=== PATIENT | female | born 1960 | race Caucasian/White ===

== ENCOUNTER 2020-04-01 03:13 | Emergency (ER) | payer OTHER ==
[~2020-04-01] VITALS: Ht 160 cm; Wt 50.8 kg
[2020-04-01 04:19] LABS: ABSOLUTE EOSINOPHILS 0.1 thou/uL (0.0-0.7); ABSOLUTE LYMPHOCYTES 1.5 thou/uL (0.8-5.3); ABSOLUTE MONOCYTES 0.4 thou/uL (0.0-1.2); ABSOLUTE NEUTROPHILS 3.7 thou/uL (1.6-8.1); BASOPHILS 0.5 %; EOSINOPHILS 1.6 %; HEMATOCRIT 38.1 % (37.0-47.0); HEMOGLOBIN 12.8 gm/dL (12.0-15.0); LYMPHOCYTES 25.7 %; MCH 29.4 pg (26.0-34.0); MCHC 33.7 g/dL (28.0-37.0); MCV 87.2 fL (80.0-100.0); MONOCYTES 7.2 %; MPV 7.5 fl. (7.2-11.1); NUCLEATED RBCS 0 /100WBC; PLATELET COUNT* 277 thou/uL (150-400); RBC 4.37 mil/uL (4.20-5.00); RDW-CV 13.4 % (10.5-14.5); WBC 5.7 thou/uL (4.0-11.0)
[2020-04-01 04:32] LABS: CALCIUM 9.4 mg/dL (8.5-10.1); CREATININE 0.7 mg/dL (0.6-1.3); POTASSIUM 3.7 mmol/L (3.5-5.1); PROTIME 10.5 Seconds (9.20-11.50)
[2020-04-01 04:35] LABS: ALBUMIN 4.1 g/dL (3.4-5.0); TOTAL BILIRUBIN 0.7 mg/dL (<0.1-1.0); TOTAL PROTEIN 7.5 g/dL (6.4-8.2)
[2020-04-01 06:25] LABS: INFLUENZA A ANTIGEN Negative (Negative); INFLUENZA B ANTIGEN Negative (Negative)
[2020-04-01 06:31] VITALS: BP 102/57
--- NOTE | 2020-04-01 18:01 | EKG ---
[place] [address] ELECTROCARDIOGRAM REPORT Name: AURORA HEREDIA Room: [facility]#: [id number] Admission: 04/01/20 Attend Phys: Discharge: 04/01/20 Date of : 62 Date of Service: 04/01/20318 Report #: [id number] THIS REPORT FOR: //name// [facility] ED Test Date: 2020-04-01 Test Time: 03:19:43 Pat Name: AURORA HEREDIA Department: Room: Gender: Soccer Coach: UNKNOWN : 1960 Requested By: Dee Dee See Order Number: [id number] MD: Ash Baker Measurements Intervals [place] Rate: 78 P: 68 AK: 112 QRS: -7 QRSD: 82 T: 44 QT: 369 QTc: 421 Interpretive Statements Sinus rhythm Borderline short AK interval No previous ECG available for comparison Electronically Signed On 04-01-2020 18:00:58 [employer] by Ash Baker [email or web address] <ELECTRONICALLY SIGNED> By: Ash Baker MD, [facility] 04/01/20 1800 8 8 Ash Baker MD, FACC /EPI
== END 2020-04-01 06:31 | disposition home or self-care (01) ==
LOC: M.ERS 03:13
PROVIDERS: Personal Emergency Response Attendant
DX: R00.2 Palpitations (principal); R94.6 Abnormal results of thyroid function studies; Z20.828 Contact with and (suspected) exposure to other viral communicable diseases; Z88.0 Allergy status to penicillin